=== PATIENT | male | born 1950 | race Asian ===

== ENCOUNTER → 2018-08-10 | Outpatient (CLI) | payer MEDICARE | END | disposition home or self-care (01) | LOC: CFH 14:30 | PROVIDERS: ATTEND Internal Medicine Cardiovascular Disease | DX: I35.1 Nonrheumatic aortic (valve) insufficiency (principal); I34.8 Other nonrheumatic mitral valve disorders; I11.9 Hypertensive heart disease without heart failure; E78.5 Hyperlipidemia, unspecified | CPT/HCPCS: 93306 ==

== ENCOUNTER 2019-09-05 10:02 | Emergency (ER) | payer MEDICARE ==
[~2019-09-05] VITALS: Ht 167.6 cm; Wt 79.2 kg
--- NOTE | 2019-09-05 10:30 | NUR ---
R eye redness, pain, woke up with it. no blurry vision, no discharge. NOTICED LOWER LID SWELLING LAST NIGHT AND DID EXERCISE THIS AM PRIOR TO NOTING REDNESS TO RIGHT EYE VA'S PERFORMED 20/30 BILAT, RIGHT EYE 20/30, LEFT EYE 20/30
--- NOTE | 2019-09-05 10:55 | NUR ---
PT REPORT FROM EMY ROSARIO. PT CARE TO BE ASSUMED. PT RESTING QUIETLY ON BED.
[2019-09-05 11:14] VITALS: BP 145/80
[2019-09-05] MEDS ORDERED: ATOR20TA86 PO (11:22)
[2019-09-05] MEDS ORDERED: PRESERVISION (11:22)
[2019-09-05] MEDS ORDERED: METO25TA35 PO (11:22)
[2019-09-05] MEDS ORDERED: ALLO300T PO (11:22)
[2019-09-05] MEDS ORDERED: ASPI-496 PO (11:22)
[2019-09-05] MEDS ORDERED: AMLO-150 PO (11:22)
[2019-09-05] MEDS ORDERED: CHOL2000 PO (11:22)
--- NOTE | 2019-09-05 11:23 | NUR ---
PT RESTING QUIETLY ON BED, RESP EVEN & UNLABORED, SPEECH CLEAR, SKIN WNL. RT EYE CONJUNCTIVA RED; NO DISCHARGE, PT DENIES PAIN. SPOUSE IN ROOM.
== END 2019-09-05 12:01 | disposition home or self-care (01) ==
LOC: ED 10:14
DX: H11.31 Conjunctival hemorrhage, right eye (principal)
CPT/HCPCS: 99282